=== PATIENT | male | born 1980 | race Caucasian/White ===

== ENCOUNTER 2019-12-12 10:05 | Outpatient (REF) | payer MEDICAID, SELFPAY ==
--- NOTE | 2019-12-12 | US_ITS ---
EXAMINATION: US ABDOMEN LIMITED CLINICAL INFORMATION: Chronic hepatitis C, hepatic fibrosis, screen for HCC. COMPARISON: Ultrasound abdomen complete with elastography dated 02/07/2019 TECHNIQUE: Real-time imaging of the right upper quadrant abdominal viscera. FINDINGS: PANCREAS: Not well visualized obscured by bowel gas. LIVER: Diffusely echogenic liver suggesting hepatic steatosis, no ultrasound evidence of focal liver lesion. No intra or extrahepatic biliary dilatation. GALLBLADDER: The gallbladder is not fully distended, no evidence of stones, sludge, polyps, wall thickening or pericholecystic fluid. No tenderness. COMMON BILE DUCT: Normal in caliber measuring 0.5 cm in diameter. RIGHT KIDNEY: Normal. No hydronephrosis. No renal calculi or focal parenchymal lesions. The kidney measures 10.9 cm in maximum dimension. FREE FLUID: None. IMPRESSION: Diffusely echogenic liver suggesting hepatic steatosis. Pancreas not well visualized obscured by bowel gas. Gallbladder was not fully distended however no ultrasound evidence of gallstones or tenderness.
== END 2019-12-12 10:06 | disposition home or self-care (01) ==
LOC: HO.US 10:05
PROVIDERS: PCP Family Medicine; Visit Provider Family Medicine
DX: B18.2 Chronic viral hepatitis C (principal); K74.00 Hepatic fibrosis, unspecified
CPT/HCPCS: 76705